=== PATIENT | female | born 1980 | race Caucasian/White ===

== ENCOUNTER → 2018-06-20 | Outpatient (CLI) | payer OTHER | LOC: FIMAGING 07:02 | PROVIDERS: ATTEND Family Medicine | DX: K80.20 Calculus of gallbladder without cholecystitis without obstruction (principal) ==

== ENCOUNTER 2018-07-11 00:47 | Emergency (ER) | payer OTHER ==
[2018-07-11] MEDS ORDERED: NS 1,000 ML IV ONE ×2 (00:59→01:05)
[2018-07-11] MEDS ORDERED: ONDANSETRON 4 MG/2 ML VIAL IVP ONE (01:00)
--- NOTE | 2018-07-11 01:00 | EDPHY ---
H & P Stated Complaint: N/V/D, abd cramping, chills Time Seen by Provider: 07/11/18 01:00 HPI/ROS: HPI CHIEF COMPLAINT: Nausea vomiting diarrhea HISTORY OF PRESENT ILLNESS: Patient 38-year-old female, otherwise healthy has a history of bipolar disorder on lithium, presents emergency room nausea vomiting and diarrhea abdominal cramping. She describes her diarrhea is very watery nonbloody. Additionally reports multiple episodes of vomiting nonbloody. Some abdominal discomfort abdominal cramps. Chills. But no fever. Denies shortness of breath or chest pain denies productive cough. Main complaint nausea vomiting and diarrhea. Patient also endorses some lightheadedness. Patient had her gallbladder removed on July 05 Patient is not on any antibiotics. Past Medical History: Bipolar disorder Past Surgical History: Gallbladder surgery on the . Social History: Denies drugs alcohol tobacco. Family History: Noncontributory ROS REVIEW OF SYSTEMS: 10 Systems were reviewed and negative with the exception of the elements mentioned in the history of present illness. Exam Constitutional nontoxic appearing no acute distress, triage nursing summary reviewed, vital signs reviewed, awake/alert. Eyes normal conjunctivae and sclera, EOMI, PERRLA. HENT normal inspection, atraumatic, moist mucus membranes, no epistaxis, neck supple/ no meningismus, no raccoon eyes. Respiratory clear to auscultation bilaterally, normal breath sounds, no respiratory distress, no wheezing. Cardiovascular rate normal, regular rhythm, no murmur, no edema, distal pulses normal. Gastrointestinal soft abdomen, minimally tender around the laparoscopic port sites. Bruising present. Wounds appear clean, dry and intact. No signs of infection. No peritoneal signs on exam. Genitourinary no CVA tenderness. Musculoskeletal no midline vertebral tenderness, full range of motion, no calf swelling, no tenderness of extremities, no meningismus, good pulses, neurovascularly intact. Skin pink, warm, & dry, no rash, skin atraumatic. Neurologic awake, alert and oriented x 3, AAOx3, moves all 4 extremities equally, motor intact, sensory intact, CN II-XII intact, normal cerebellar, normal vision, normal speech. Psychiatric normal mood/affect. Heme/Lymph/Immune no lymphadenopathy. Differential diagnosis includes but is not limited to and in no particular order : Bowel obstruction, appendicitis, gallbladder disease, diverticulitis, colitis , enteritis, perforated viscus, gastritis, GERD, esophagitis, urinary tract infection, pyelonephritis, kidney stones Medical Decision Making: Plan for this patient IV establishment IV fluid bolus , Zofran for nausea, CT scan abdomen pelvis with IV contrast due to abdominal pain status post gallbladder surgery, basic electrolytes, UA, re-evaluate. Re-evaluation: CT scan abdomen pelvis with IV contrast negative for acute inflammatory process. Called to me by Dr. Hutchinson. 4:17 a.m. Re-evaluation patient resting comfortably in no acute distress. Abdomen is soft not vomiting. She p.o. Challenge well without difficulty. CT scan shows fluid in the colon but no acute inflammatory process Urinalysis reviewed and shows bacteria will send for culture. Will treat just in case this is causing her feel unwell. Keflex. Return precautions discussed with the patient she understands return emergency room if develops worsening abdominal pain, fever, vomiting Swisher diet over the next 24-48 hours Return if worsening pain fever vomiting not doing well. She is comfortable this plan comfortable discharge. Source: Patient - Personal History LMP (Females 10-55): 1-7 Days Ago Current Tetanus/Diphtheria Vaccine: Yes Tetanus Vaccine Date: 2006 - Medical/Surgical History Hx Asthma: No Hx Chronic Respiratory Disease: No Hx Diabetes: No Hx Cardiac Disease: No Hx Renal Disease: No Hx Cirrhosis: No Hx Alcoholism: No Hx HIV/AIDS: No Hx Splenectomy or Spleen Trauma: No Other PMH: med hx-bipolar. surg-gallbladder removed - Social History Smoking Status: Never smoked Constitutional: Initial Vital Signs Temperature (C) 37.2 C 07/11/18 00:53 Heart Rate 90 07/11/18 00:53 Respiratory Rate 18 07/11/18 00:53 Blood Pressure 110/81 H 07/11/18 00:53 O2 Sat (%) 96 07/11/18 00:53 O2 Delivery Mode Room Air Allergies/Adverse Reactions: lamotrigine [From Lamictal] Allergy (Intermediate, Verified 02/17/14 08:17) muscle cramps and deterioration tramadol Allergy (Intermediate, Verified 02/17/14 08:17) manic ofloxacin [From Floxin] Allergy (Verified 07/11/18 00:55) Home Medications: Medication Instructions Recorded [employer] Carbonate [[employer] 900 mg 02/05/14 Carbonate Cap 300 mg (RX)] Cephalexin [Keflex] 500 mg PO Q6H #28 cap 07/11/18 Medical Decision Making - Data Points Laboratory Results: Laboratory Results 07/11/18 01:05 07/11/18 01:05 07/11/18 07/11/18 07/11/18 02:25 01:05 01:05 WBC 9.56 10^3/uL H 10^3/uL (3.80-9.50) RBC 4.29 10^6/uL 10^6/uL (4.18-5.33) Hgb 11.7 g/dL L g/dL (12.6-16.3) Hct 37.9 % L % (38.0-47.0) MCV 88.3 fL fL (81.5-99.8) MCH 27.3 pg L pg (27.9-34.1) MCHC 30.9 g/dL L g/dL (32.4-36.7) RDW 14.8 % % (11.5-15.2) Plt Count 293 10^3/uL 10^3/uL (150-400) MPV 11.4 fL fL (8.7-11.7) Neut % (Auto) 87.8 % H % (39.3-74.2) Lymph % (Auto) 4.6 % L % (15.0-45.0) [place] % (Auto) 5.0 % % (4.5-13.0) Eos % (Auto) 2.2 % % (0.6-7.6) Baso % (Auto) 0.2 % L % (0.3-1.7) Nucleat RBC Rel Count 0.0 % % (0.0-0.2) Absolute Neuts (auto) 8.39 10^3/uL H 10^3/uL (1.70-6.50) Absolute Lymphs (auto) 0.44 10^3/uL L 10^3/uL (1.00-3.00) Absolute Monos (auto) 0.48 10^3/uL 10^3/uL (0.30-0.80) Absolute Eos (auto) 0.21 10^3/uL 10^3/uL (0.03-0.40) Absolute Basos (auto) 0.02 10^3/uL 10^3/uL (0.02-0.10) Absolute Nucleated RBC 0.00 10^3/uL 10^3/uL (0-0.01) Immature Gran % 0.2 % % (0.0-1.1) Immature Gran # 0.02 10^3/uL 10^3/uL (0.00-0.10) RBC/WBC/PLT Morphology TNP Platelet Estimate TNP VBG Lactic Acid Sodium 137 mEq/L mEq/L (135-145) Potassium 4.1 mEq/L mEq/L (3.5-5.2) Chloride 106 mEq/L mEq/L (97-110) Carbon Dioxide 22 mEq/l mEq/l (22-31) Anion Gap 9 mEq/L mEq/L (6-14) BUN 14 mg/dL mg/dL (7-23) Creatinine 0.8 mg/dL mg/dL (0.6-1.0) Estimated GFR > 60 Glucose 121 mg/dL H mg/dL (70-100) Calcium 9.6 mg/dL mg/dL (8.5-10.4) Total Bilirubin 0.8 mg/dL mg/dL (0.1-1.4) Conjugated Bilirubin 0.2 mg/dL mg/dL (0.0-0.5) Unconjugated Bilirubin 0.6 mg/dL mg/dL (0.0-1.1) AST 36 IU/L IU/L (14-46) ALT 55 IU/L H IU/L (9-52) Alkaline Phosphatase 129 IU/L H IU/L (38-126) Total Protein 7.4 g/dL g/dL (6.3-8.2) Albumin 4.5 g/dL g/dL (3.5-5.0) Lipase 75 IU/L IU/L (23-300) Urine Color PALE YELLOW Urine Appearance CLEAR Urine pH 7.0 (5.0-7.5) Ur Specific [place] 1.011 (1.002-1.030) Urine Protein NEGATIVE (NEGATIVE) Urine Ketones TRACE H (NEGATIVE) Urine Blood 1+ H (NEGATIVE) Urine Nitrate NEGATIVE (NEGATIVE) Urine Bilirubin NEGATIVE (NEGATIVE) Urine Urobilinogen NEGATIVE EU EU (0.2-1.0) Ur Leukocyte Esterase NEGATIVE (NEGATIVE) Urine RBC NONE SEEN /hpf /hpf (0-3) Urine WBC 0-1 /hpf /hpf (0-3) Ur Epithelial Cells TRACE /lpf /lpf (NONE-1+) Urine Bacteria 1+ /hpf H /hpf (NONE SEEN) Urine Mucus TRACE /lpf /lpf (NONE-1+) Urine Glucose NEGATIVE (NEGATIVE) [employer] 0.5 mEq/L L mEq/L (0.6-1.2) 07/11/18 01:05 WBC RBC Hgb Hct MCV MCH MCHC RDW Plt Count MPV Neut % (Auto) Lymph % (Auto) [place] % (Auto) Eos % (Auto) Baso % (Auto) Nucleat RBC Rel Count Absolute Neuts (auto) Absolute Lymphs (auto) Absolute Monos (auto) Absolute Eos (auto) Absolute Basos (auto) Absolute Nucleated RBC Immature Gran % Immature Gran # RBC/WBC/PLT Morphology Platelet Estimate VBG Lactic Acid 0.9 mmol/L mmol/L (0.7-2.1) Sodium Potassium Chloride Carbon Dioxide Anion Gap BUN Creatinine Estimated GFR Glucose Calcium Total Bilirubin Conjugated Bilirubin Unconjugated Bilirubin AST ALT Alkaline Phosphatase Total Protein Albumin Lipase Urine Color Urine Appearance Urine pH Ur Specific [place] Urine Protein Urine Ketones Urine Blood Urine Nitrate Urine Bilirubin Urine Urobilinogen Ur Leukocyte Esterase Urine RBC Urine WBC Ur Epithelial Cells Urine Bacteria Urine Mucus Urine Glucose [employer] Medications Given: Discontinued Medications Sodium Chloride (Ns) 1,000 mls @ 0 mls/hr IV ONCE ONE; Wide Open PRN Reason: Protocol Stop: 07/11/18 01:00 Last Admin: 07/11/18 01:08 Dose: 1,000 mls Sodium Chloride (Ns) 1,000 mls @ 0 mls/hr IV ONCE ONE PRN Reason: Wide Open Stop: 07/11/18 01:06 Last Admin: 07/11/18 01:07 Dose: 1,000 mls Ondansetron HCl (Zofran) 4 mg IVP EDNOW ONE Stop: 07/11/18 01:01 Last Admin: 07/11/18 01:07 Dose: 4 mg Departure - Departure Disposition: Home, Routine, Self-Care Clinical Impression: Vomiting, Diarrhea Condition: Good Instructions: Dehydration (ED), Acute Nausea and Vomiting (ED), Acute Diarrhea (ED) Additional Instructions: 1. Swisher diet over the next 24-48 hours. 2. Return to the emergency room if worsening abdominal pain fever vomiting 3. Antibiotics as prescribed 4. Please return if worse. Referrals: Marly Remy MD [Primary Care Provider] - As per Instructions Prescriptions: Cephalexin [Keflex] 500 mg PO Q6H #28 cap
[2018-07-11 01:14] LABS: PLATELET COUNT 293 10^3/uL (150-400)
[2018-07-11] MEDS ORDERED: CEPHALEXIN 500MG PREPACK#4 BTL TAKEHOME ONE (04:16)
[2018-07-11] MEDS ORDERED: CEPHALEXIN 500 MG CAP PO ONE (04:16)
[2018-07-11 04:21] VITALS: BP 114/75
== END 2018-07-11 04:32 | disposition home or self-care (01) ==
DX: R11.2 Nausea with vomiting, unspecified (principal); R19.7 Diarrhea, unspecified; E86.9 Volume depletion, unspecified; F31.9 Bipolar disorder, unspecified; Z79.899 Other long term (current) drug therapy; Z90.49 Acquired absence of other specified parts of digestive tract; Z98.890 Other specified postprocedural states
CPT/HCPCS: 96374; J2405